=== PATIENT | male | born 2005 | race Caucasian/White ===

== ENCOUNTER → 2024-03-24 | Outpatient (CLI) | payer OTHER ==
[2024-03-24 14:43] LABS: LDH LACTATE DEHYDROGENASE 157 U/L (120-246)
[2024-03-24 14:45] LABS: C REACTIVE PROTEIN QUANTITATIV < 0.50 MG/DL (<1.0)
[2024-03-25 14:57] LABS: ANGIOTENSIN 1 CONVERTING ENZYM 45 U/L (9-67)
[2024-03-27 19:12] LABS: CRYTPOCOCCUS SOURCE Serum
== END ==
LOC: M LAB 03-23 15:51
PROVIDERS: ATTEND Internal Medicine Critical Care Medicine
DX: R91.8 Other nonspecific abnormal finding of lung field (principal)